=== PATIENT | female | born 1990 | race Two or more races ===

== ENCOUNTER 2019-06-25 10:34 | Inpatient (IN) | payer OTHER ==
[2019-06-25 13:58] VITALS: BMI 20.8
--- NOTE | 2019-06-25 14:52 | HP ---
CIWA Score Nausea/Vomitin-Mild Nausea/No Vomiting Muscle Tremors: 3 Anxiety: 3 Agitation: 3 Paroxysmal Sweats: 1-Minimal Palms Moist Orientation: 0-Oriented Tacttile Disturbances: 0-None Auditory Disturbances: 0-None Visual Disturbances: 0-None Headache: 1-Very Mild CIWA-Ar Total Score: 12 - Admission Criteria OASAS Guidelines: Admission for Medically Managed Detox: Requires at least one of the followin. CIWA greater than 12 2. Seizures within the past 24 hours 3. Delirium tremens within the past 24 hours 4. Hallucinations within the past 24 hours 5. Acute intervention needed for co occurring medical disorder 6. Acute intervention needed for co occurring psychiatric disorder 7. Severe withdrawal that cannot be handled at a lower level of care (continued vomiting, continued diarrhea, abnormal vital signs) requiring intravenous medication and/or fluids 8. Admission ROS [facility] Chief Complaint: alcohol detox Allergies/Adverse Reactions: Allergies Allergy/AdvReac Type Severity Reaction Status Date / Time No Known Allergies Allergy Verified 06/25/19 13:26 History of Present Illness: 28 yo with mental health issues- has trouble getting all her meds b/c of insurance, pt is homeless. Pt has been trying to stop using alcohol/cocaine for the last 4 years- but has not been able to stop. Pt states she has been getting MH medications when she is admitted at various facilities. Has not taken meds for several weeks- to see MH while here. Pt is using alcohol and crack to stop cutting- and does this when she is not able to express herself. Pt has no family that she can rely on. PCP- does not have one MH- has no services alcohol- 1/2 gallon of alcohol/day no h/o seizures or DT's crack cocaine- $500-600/day THC- $20/day DUR- no controlled substance Utox-THC, kendy - Ebola screening Have you traveled outside of the country in the last 21 days: No (N) Have you had contact with anyone from an Ebola affected area: No Do you have a fever: No - Review of Systems Constitutional: No Symptoms Reported EENT: reports: No Symptoms Reported Respiratory: reports: No Symptoms reported Cardiac: reports: No Symptoms Reported GI: reports: No Symptoms Reported : reports: No Symptoms Reported Musculoskeletal: reports: No Symptoms Reported Integumentary: reports: No Symptoms Reported Neuro: reports: No Symptoms reported Endocrine: reports: No Symptoms Reported Hematology: reports: No Symptoms Reported Psychiatric: reports: No Sypmtoms Reported Other Systems: Reviewed and Negative Patient History - Patient Medical History Hx Asthma: No Hx Chronic Obstructive Pulmonary Disease (COPD): No Hx Cardiac Disorders: No Hx Hypertension: No Hx Seizures: No Hx Diabetes: No Hx Gastrointestinal Disorders: No Hx Genitourinary Disorders: No Hx Sexually Transmitted Disorders: No Hx Renal Disease (ESRD): No Hx Depression: Yes Hx Suicide Attempt: No Hx Schizophrenia: No Other Medical History: cutting, - Patient Surgical History Past Surgical History: No Hx Neurologic Surgery: No Hx Cataract Extraction: No Hx Cardiac Surgery: No Hx Lung Surgery: No Hx Breast Surgery: No Hx Breast Biopsy: No Hx Abdominal Surgery: No Hx Appendectomy: No Hx Cholecystectomy: No Hx Genitourinary Surgery: No Hx Section: No Hx Orthopedic Surgery: No Anesthesia Reaction: No - Smoking Cessation Smoking history: Unknown if ever smoked Have you smoked in the past 12 months: Yes Aproximately how many cigarettes per day: 10 Hx Chewing Tobacco Use: No Initiated information on smoking cessation: Yes 'Breaking Loose' booklet given: 06/25/19 - Substances abused Alcohol Substance route: Oral Frequency: Daily Amount used: 1/2 gallon Age of first use: 16 Date of last use: 06/25/19 Marijuana/Hashish Substance route: Smoking Frequency: Daily Amount used: $20 Age of first use: 16 Date of last use: 06/24/19 Crack Substance route: Smoking Frequency: Daily Amount used: $300 Age of first use: 20 Date of last use: 06/23/19 Family Disease History - Family Disease History Family Disease History: Other: Father (addiction alcohol and PCP, THC) Admission Physical Exam BHS - Vital Signs Vital Signs: Vital Signs - 24 hr 06/25/19 13:17 Temperature 99 F Pulse Rate 85 Respiratory 18 Rate Blood Pressure 128/79 - Physical General Appearance: Yes: Within Normal Limits HEENTM: Yes: Within Normal Limits Respiratory: Yes: Within Normal Limits, Lungs Clear Neck: Yes: Within Normal Limits Cardiology: Yes: Within Normal Limits Abdominal: Yes: Within Normal Limits Back: Yes: Within Normal Limits Musculoskeletal: Yes: Within Normal Limits Extremities: Yes: Within Normal Limits Neurological: Yes: Within Normal Limits Integumentary: Yes: Other (cutting scars L forearm) - Diagnostic (1) Depression Current Visit: Yes Status: Acute (2) YVON (generalized anxiety disorder) Current Visit: Yes Status: Acute (3) Bipolar 1 disorder with moderate sally Current Visit: Yes Status: Acute (4) Alcohol use disorder Current Visit: Yes Status: Acute (5) Cannabis abuse Current Visit: Yes Status: Acute (6) Crack cocaine use Current Visit: Yes Status: Acute Breathalyzer - Breathalyzer Breathalyzer: 0.053 Urine Drug Screen - Test Device Lot number: [id number] Expiration date: 03/17/21 - Control Is test valid?: Yes - Results Drug screen NEGATIVE: No Urine drug screen results: THC-Marijuana, KENDY-Cocaine Inpatient Rehab Admission - Rehab Decision to Admit Inpatient rehab admission?: No
[2019-06-25] MEDS ORDERED: chlordiazePOXIDE HCL 25 MG CAPSULE PO ONE (14:59)
[2019-06-25] MEDS ORDERED: MAG HYDROX/AL HYDROX/SIMETH 30 ML UNIT-DOSE CUP PO PRN (14:59)
[2019-06-25] MEDS ORDERED: IBUPROFEN 400 MG TABLET (FP) PO PRN (14:59)
[2019-06-25] MEDS ORDERED: BISMUTH SUBSALICYLATE 524 MG/30 ML UD PO PRN (14:59)
[2019-06-25] MEDS ORDERED: chlordiazePOXIDE HCL 25 MG CAPSULE PO PRN (14:59)
[2019-06-25] MEDS ORDERED: ACETAMINOPHEN 325 MG TABLET (FP) PO PRN ×2 (14:59)
[2019-06-25] MEDS ORDERED: MAGNESIUM CITRATE 300 ML BOTTLE PO PRN (14:59)
[2019-06-25] MEDS ORDERED: MAGNESIUM HYDROX 2400MG/30ML ORAL SUSPENSION 30 ML CUP PO PRN (14:59)
[2019-06-25] MEDS: METHOCARBAMOL 500 MG TABLET PO PRN (17:17)
[2019-06-25] MEDS: chlordiazePOXIDE HCL 25 MG CAPSULE PO SCH (22:25)
[2019-06-25] MEDS: MELATONIN 5 MG TABLETS PO PRN (22:25)
[2019-06-25] MEDS: THIAMINE HCL 100 MG TABLET (FP) PO SCH (22:25)
[2019-06-26] MEDS: chlordiazePOXIDE HCL 25 MG CAPSULE PO SCH ×4 (06:03→23:48)
[2019-06-26] MEDS: NICOTINE POLACRILEX 2 MG GUM BUC PRN (06:05)
[2019-06-26] MEDS: PRENATAL VITAMINS W/ FOLIC ACID TABLET (FP) PO SCH (10:09)
[2019-06-26] MEDS: METHOCARBAMOL 500 MG TABLET PO PRN (10:09)
[2019-06-26] MEDS: NICOTINE 14 MG/24 HOURS TOPICAL PATCH TD SCH (10:09)
[2019-06-26] MEDS: MENTHOL/PHENOL 1 EACH UD MM PRN (10:10)
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
[2019-06-26] MEDS: LURASIDONE HCL 40 MG TABLET PO SCH (11:12)
[2019-06-26] MEDS: cloNIDine HCL 0.1 MG TABLET PO SCH (11:54)
--- NOTE | 2019-06-26 12:27 | PN ---
S CIWA - CIWA Score Nausea/Vomitin-No Nausea/No Vomiting Muscle Tremors: 4-Moderate,w/Arms Extend Anxiety: 4-Mod. Anxious/Guarded Agitation: 4-Moderately Restless Paroxysmal Sweats: 3 Orientation: 0-Oriented Tacttile Disturbances: 0-None Auditory Disturbances: 0-None Visual Disturbances: 0-None Headache: 0-None Present CIWA-Ar Total Score: 15 BHS Progress Note (SOAP) Subjective: shakes sweats interrupted sleep body aches anxiety Objective: 06/26/19 12:25 Vital Signs Temperature 97.3 F L 06/26/19 09:44 Pulse Rate 82 06/26/19 09:44 Respiratory Rate 17 06/26/19 09:44 Blood Pressure 127/65 06/26/19 09:44 O2 Sat by Pulse Oximetry (%) Laboratory Tests 06/25/19 14:16 POC Urine HCG, Qual Negative rest of labs pending aaox3 ambulating no acute distress Assessment: 06/26/19 12:26 withdrawal sx Plan: continue detox increase fluids pending labs
[2019-06-26 12:48] LABS: HEMATOCRIT 38.4 % (32.4-45.2); HEMOGLOBIN 12.9 GM/dL (10.7-15.3); MCH 32.2 pg (25.7-33.7); MCHC 33.6 g/dl (32.0-36.0); MEAN CELL VOLUME 95.9 fl (80-96); MEAN PLT VOLUME 8.3 fl (7.5-11.1); PLATELET COUNT 270 K/MM3 (134-434); RBC 4.01 M/mm3 (3.60-5.2); RDW 13.9 % (11.6-15.6); WHITE BLOOD COUNT 7.9 K/mm3 (4.0-10.0)
[2019-06-26 12:54] LABS: ALBUMIN 3.9 g/dl (3.4-5.0); BILIRUBIN,TOTAL 0.3 mg/dL (0.2-1); BLOOD UREA NITROGEN 14.5 mg/dL (7-18); CALCIUM 9.1 mg/dL (8.5-10.1); CREATININE 0.9 mg/dL (0.55-1.3); POTASSIUM 3.9 mmol/L (3.5-5.1); TOT PROT 7.3 g/dl (6.4-8.2)
[2019-06-26 12:57] LABS: URINE APPEARANCE CLOUDY; URINE BILIRUBIN NEGATIVE (NEGATIVE); URINE COLOR YELLOW; URINE GLUCOSE (UA) NEGATIVE (NEGATIVE); URINE KETONE NEGATIVE (NEGATIVE); URINE LEUK ESTERASE NEGATIVE (NEGATIVE); URINE NITRITE NEGATIVE (NEGATIVE); URINE PROTEIN NEGATIVE (NEGATIVE); URINE UROBILINOGEN 0.2 mg/dL (0.2-1.0)
[2019-06-26] MEDS: THIAMINE HCL 100 MG TABLET (FP) PO SCH (23:48)
[2019-06-26] MEDS: QUEtiapine FUMARATE 100 MG TABLET (FP) PO SCH (23:48)
[2019-06-27] MEDS: METHOCARBAMOL 500 MG TABLET PO PRN ×4 (01:07→22:16)
[2019-06-27] MEDS: chlordiazePOXIDE HCL 25 MG CAPSULE PO SCH ×4 (06:13→22:15)
[2019-06-27] MEDS: cloNIDine HCL 0.1 MG TABLET PO SCH (10:26)
[2019-06-27] MEDS: LURASIDONE HCL 40 MG TABLET PO SCH (10:26)
[2019-06-27] MEDS: PRENATAL VITAMINS W/ FOLIC ACID TABLET (FP) PO SCH (10:27)
[2019-06-27] MEDS: NICOTINE 14 MG/24 HOURS TOPICAL PATCH TD SCH (10:27)
[2019-06-27] MEDS: NICOTINE POLACRILEX 2 MG GUM BUC PRN ×2 (10:28→12:42)
[2019-06-27] MEDS: MENTHOL/PHENOL 1 EACH UD MM PRN ×2 (10:28→22:18)
--- NOTE | 2019-06-27 11:28 | PN ---
[facility] CIWA - CIWA Score Nausea/Vomitin-No Nausea/No Vomiting Muscle Tremors: 3 Anxiety: 3 Agitation: 3 Paroxysmal Sweats: 2 Orientation: 0-Oriented Tacttile Disturbances: 0-None Auditory Disturbances: 0-None Visual Disturbances: 0-None Headache: 0-None Present CIWA-Ar Total Score: 11 S Progress Note (SOAP) Subjective: agitation sweats jumpy irritable Objective: 06/27/19 11:27 Vital Signs Temperature 98.2 F 06/27/19 09:50 Pulse Rate 93 H 06/27/19 09:50 Respiratory Rate 16 06/27/19 09:50 Blood Pressure 111/69 06/27/19 09:50 O2 Sat by Pulse Oximetry (%) Laboratory Tests 06/25/19 06/26/19 06/26/19 14:16 09:00 09:00 WBC 7.9 RBC 4.01 Hgb 12.9 Hct 38.4 MCV 95.9 MCH 32.2 MCHC 33.6 RDW 13.9 Plt Count 270 MPV 8.3 Sodium 140 Potassium 3.9 Chloride 104 Carbon Dioxide 26 Anion Gap 10 BUN 14.5 Creatinine 0.9 Est GFR (CKD-EPI)AfAm 102.28 Est GFR (CKD-EPI)NonAf 88.25 Random Glucose 90 Calcium 9.1 Total Bilirubin 0.3 AST 16 ALT 18 Alkaline Phosphatase 67 Total Protein 7.3 Albumin 3.9 Urine Color Urine Appearance Urine pH Ur Specific [place] Urine Protein Urine Glucose (UA) Urine Ketones Urine Blood Urine Nitrite Urine Bilirubin Urine Urobilinogen Ur Leukocyte Esterase POC Urine HCG, Qual Negative RPR Titer 06/26/19 06/26/19 09:00 09:00 WBC RBC Hgb Hct MCV MCH MCHC RDW Plt Count MPV Sodium Potassium Chloride Carbon Dioxide Anion Gap BUN Creatinine Est GFR (CKD-EPI)AfAm Est GFR (CKD-EPI)NonAf Random Glucose Calcium Total Bilirubin AST ALT Alkaline Phosphatase Total Protein Albumin Urine Color Yellow Urine Appearance Cloudy Urine pH 6.0 Ur Specific [place] 1.030 Urine Protein Negative Urine Glucose (UA) Negative Urine Ketones Negative Urine Blood Negative Urine Nitrite Negative Urine Bilirubin Negative Urine Urobilinogen 0.2 Ur Leukocyte Esterase Negative POC Urine HCG, Qual RPR Titer Nonreactive labs noted aaox3 ambulating no acute distress Assessment: 06/27/19 11:28 withdrawal sx Plan: continue detox increase fluids
[2019-06-27] MEDS: hydrOXYzine PAMOATE 25 MG CAPSULE (FP) PO PRN (12:42)
[2019-06-27] MEDS: QUEtiapine FUMARATE 100 MG TABLET (FP) PO SCH (22:15)
[2019-06-27] MEDS: THIAMINE HCL 100 MG TABLET (FP) PO SCH (22:15)
[2019-06-28] MEDS ORDERED: chlordiazePOXIDE HCL 10 MG CAPSULE PO PRN
[2019-06-28] MEDS: chlordiazePOXIDE HCL 10 MG CAPSULE PO SCH ×4 (06:08→22:09)
[2019-06-28] MEDS: METHOCARBAMOL 500 MG TABLET PO PRN ×3 (09:01→23:45)
[2019-06-28] MEDS: NICOTINE POLACRILEX 2 MG GUM BUC PRN ×3 (09:01→19:05)
[2019-06-28] MEDS: PRENATAL VITAMINS W/ FOLIC ACID TABLET (FP) PO SCH (10:26)
[2019-06-28] MEDS: cloNIDine HCL 0.1 MG TABLET PO SCH (10:27)
[2019-06-28] MEDS: LURASIDONE HCL 40 MG TABLET PO SCH (10:27)
[2019-06-28] MEDS: NICOTINE 14 MG/24 HOURS TOPICAL PATCH TD SCH (10:27)
--- NOTE | 2019-06-28 11:18 | PN ---
[facility] CIWA - CIWA Score Nausea/Vomitin-Mild Nausea/No Vomiting Muscle Tremors: 1-None Visible, but Todd Anxiety: 3 Agitation: 3 Paroxysmal Sweats: No Perspiration Orientation: 0-Oriented Tacttile Disturbances: 1-Very Mild Itch/Numbness Auditory Disturbances: 0-None Visual Disturbances: 0-None Headache: 1-Very Mild CIWA-Ar Total Score: 10 BHS Progress Note (SOAP) Subjective: alert,irritable,anxious,interrupted sleep, Objective: 06/28/19 11:16 Vital Signs Temperature 97.4 F L 06/28/19 09:23 Pulse Rate 89 06/28/19 09:23 Respiratory Rate 18 06/28/19 09:23 Blood Pressure 124/71 06/28/19 09:23 O2 Sat by Pulse Oximetry (%) Assessment: 06/28/19 11:16 withdrawal symptom Plan: continue detox librium regimen,would lik ehiv test done,psychiatric evaluation by patient's request
[2019-06-28] MEDS: MENTHOL/PHENOL 1 EACH UD MM PRN ×2 (17:04→22:12)
[2019-06-28] MEDS: QUEtiapine FUMARATE 100 MG TABLET (FP) PO SCH (22:09)
[2019-06-28] MEDS: THIAMINE HCL 100 MG TABLET (FP) PO SCH (22:09)
[2019-06-28] MEDS: hydrOXYzine PAMOATE 25 MG CAPSULE (FP) PO PRN (22:10)
[2019-06-29] MEDS: METHOCARBAMOL 500 MG TABLET PO PRN ×2 (05:45→17:11)
[2019-06-29] MEDS: chlordiazePOXIDE HCL 10 MG CAPSULE PO SCH ×2 (05:45→17:10)
[2019-06-29] MEDS: MENTHOL/PHENOL 1 EACH UD MM PRN ×2 (05:45→17:13)
[2019-06-29] MEDS: NICOTINE POLACRILEX 2 MG GUM BUC PRN ×2 (05:46→20:06)
[2019-06-29] MEDS: cloNIDine HCL 0.1 MG TABLET PO SCH (09:58)
[2019-06-29] MEDS: PRENATAL VITAMINS W/ FOLIC ACID TABLET (FP) PO SCH (09:58)
[2019-06-29] MEDS: hydrOXYzine PAMOATE 25 MG CAPSULE (FP) PO PRN (10:01)
[2019-06-29] MEDS: NICOTINE 14 MG/24 HOURS TOPICAL PATCH TD SCH (10:01)
[2019-06-29] MEDS: LURASIDONE HCL 40 MG TABLET PO SCH (10:02)
--- NOTE | 2019-06-29 10:25 | PN ---
[facility] CIWA - CIWA Score Nausea/Vomitin-No Nausea/No Vomiting Muscle Tremors: 2 Anxiety: 2 Agitation: 2 Paroxysmal Sweats: No Perspiration Orientation: 0-Oriented Tacttile Disturbances: 0-None Auditory Disturbances: 0-None Visual Disturbances: 0-None Headache: 0-None Present CIWA-Ar Total Score: 6 S Progress Note (SOAP) Subjective: doing well with librium detox regimen sleep better at night well rested less tremor discuss aftercare with staff prefers [facility] for alcohol recovery Objective: 06/29/19 10:28 Vital Signs Temperature 98.9 F 06/29/19 09:13 Pulse Rate 100 H 06/29/19 09:13 Respiratory Rate 20 06/29/19 09:13 Blood Pressure 100/70 06/29/19 09:13 O2 Sat by Pulse Oximetry (%) Laboratory Last Values WBC 7.9 K/mm3 (4.0-10.0) 06/26/19 09:00 RBC 4.01 M/mm3 (3.60-5.2) 06/26/19 09:00 Hgb 12.9 GM/dL (10.7-15.3) 06/26/19 09:00 Hct 38.4 % (32.4-45.2) 06/26/19 09:00 MCV 95.9 fl (80-96) 06/26/19 09:00 MCH 32.2 pg (25.7-33.7) 06/26/19 09:00 MCHC 33.6 g/dl (32.0-36.0) 06/26/19 09:00 RDW 13.9 % (11.6-15.6) 06/26/19 09:00 Plt Count 270 K/MM3 (134-434) 06/26/19 09:00 MPV 8.3 fl (7.5-11.1) 06/26/19 09:00 Sodium 140 mmol/L (136-145) 06/26/19 09:00 Potassium 3.9 mmol/L (3.5-5.1) 06/26/19 09:00 Chloride 104 mmol/L (98-107) 06/26/19 09:00 Carbon Dioxide 26 mmol/L (21-32) 06/26/19 09:00 Anion Gap 10 MMOL/L (8-16) 06/26/19 09:00 BUN 14.5 mg/dL (7-18) 06/26/19 09:00 Creatinine 0.9 mg/dL (0.55-1.3) 06/26/19 09:00 Est GFR (CKD-EPI)AfAm 102.28 06/26/19 09:00 Est GFR (CKD-EPI)NonAf 88.25 06/26/19 09:00 Random Glucose 90 mg/dL (74-106) 06/26/19 09:00 Calcium 9.1 mg/dL (8.5-10.1) 06/26/19 09:00 Total Bilirubin 0.3 mg/dL (0.2-1) 06/26/19 09:00 AST 16 U/L (15-37) 06/26/19 09:00 ALT 18 U/L (13-61) 06/26/19 09:00 Alkaline Phosphatase 67 U/L (45-117) 06/26/19 09:00 Total Protein 7.3 g/dl (6.4-8.2) 06/26/19 09:00 Albumin 3.9 g/dl (3.4-5.0) 06/26/19 09:00 Urine Color Yellow 06/26/19 09:00 Urine Appearance Cloudy 06/26/19 09:00 Urine pH 6.0 (5.0-8.0) 06/26/19 09:00 Ur Specific [place] 1.030 (1.010-1.035) 06/26/19 09:00 Urine Protein Negative (NEGATIVE) 06/26/19 09:00 Urine Glucose (UA) Negative (NEGATIVE) 06/26/19 09:00 Urine Ketones Negative (NEGATIVE) 06/26/19 09:00 Urine Blood Negative (NEGATIVE) 06/26/19 09:00 Urine Nitrite Negative (NEGATIVE) 06/26/19 09:00 Urine Bilirubin Negative (NEGATIVE) 06/26/19 09:00 Urine Urobilinogen 0.2 mg/dL (0.2-1.0) 06/26/19 09:00 Ur Leukocyte Esterase Negative (NEGATIVE) 06/26/19 09:00 POC Urine HCG, Qual Negative 06/25/19 14:16 RPR Titer Nonreactive (NONREACTIVE) 06/26/19 09:00 HIV 1&2 Ag/Ab, 4th Gen Non reactive (Non Reactive) 06/28/19 11:00 lab noted 06/29/19 10:28 anxious about leaving detox lack of confidence in relapse preventin Assessment: 06/29/19 10:29 alcohohol withdrawal sx Plan: continue librium detox regimen
--- NOTE | 2019-06-29 11:59 | PN ---
Psychiatric Progress Note Vital Signs: Vital Signs Period Temp Pulse Resp BP Sys/Drake Pulse Ox Last 24 Hr 96.9 F-99.3 F 73-100 16-20 99-110/49-75 Date of Session: 06/29/19 Chief Complaint:: " I have alot of anxiety." HPI: Patient admitted to for treatment of alcohol, cocaine and cannabis dependence. Patient reports worsening anxiety. ROS: Patient coherent, fatigue, alert + oriented x3. Current Medications: Active Medications Generic Name Dose Route Start Last Admin Trade Name Freq PRN Reason Stop Dose Admin Acetaminophen 650 mg 06/25/19 14:59 06/28/19 22:11 Tylenol - PO 650 mg Q6H PRN Administration PAIN LEVEL 4 - 6 Acetaminophen 650 mg 06/25/19 14:59 Tylenol - PO Q6H PRN FEVER Al Hydroxide/Mg Hydroxide 30 ml 06/25/19 14:59 Mylanta Oral Suspension - PO Q6H PRN DYSPEPSIA Bismuth Subsalicylate 524 mg 06/25/19 14:59 Pepto-Bismol - PO Q1H PRN DIARRHEA Bupropion HCl 150 mg 06/26/19 10:45 06/29/19 09:58 Wellbutrin Xl - PO 150 mg DAILY SHERON Administration Chlordiazepoxide HCl 10 mg 06/29/19 05:00 06/29/19 05:45 Librium - PO 06/29/19 17:01 10 mg Q12H SHERON Administration Chlordiazepoxide HCl 10 mg 06/30/19 05:00 Librium - PO 06/30/19 05:01 ONCE@0500 ONE Clonidine 0.2 mg 06/26/19 11:40 06/29/19 09:58 Catapres - PO 0.2 mg DAILY SHERON Administration Eucalyptus/Menthol/Phenol/Sorbitol 1 each 06/25/19 14:59 06/29/19 05:45 Cepastat Lozenge - MM 07/01/19 14:59 1 each Q4H PRN Administration SORE THROAT Hydroxyzine Pamoate 25 mg 06/25/19 14:59 06/29/19 10:01 Vistaril - PO 07/01/19 14:59 25 mg Q6H PRN Administration For Anxiety Ibuprofen 400 mg 06/25/19 14:59 06/27/19 19:18 Motrin - PO 400 mg Q6H PRN Administration PAIN LEVEL 1 - 3 Lurasidone HCl 40 mg 06/26/19 10:45 06/29/19 10:02 Latuda - PO 40 mg DAILY SHERON Administration Magnesium Citrate 300 ml 06/25/19 14:59 Citroma - PO Q48H PRN CONSTIPATION Magnesium Hydroxide 30 ml 06/25/19 14:59 Milk Of Magnesia - PO PRN PRN CONSTIPATION Melatonin 5 mg 06/25/19 14:59 06/25/19 22:25 Melatonin PO 5 mg HS PRN Administration INSOMNIA Methocarbamol 500 mg 06/25/19 14:59 06/29/19 05:45 Robaxin - PO 07/01/19 14:59 500 mg Q6H PRN Administration MUSCLE SPASMS Nicotine 14 mg 06/26/19 10:00 06/29/19 10:01 Nicoderm Patch - TD 14 mg DAILY SHERON Administration Nicotine Polacrilex 2 mg 06/25/19 18:05 06/29/19 05:46 Nicorette Gum - BUC 2 mg Q2H PRN Administration NICOTINE REPLACEMENT RX Multivit/Folic Acid/Iron 1 tab 06/26/19 10:00 06/29/19 09:58 Vitamins (Sjr) - PO 1 tab DAILY SHERON Administration Quetiapine Fumarate 100 mg 06/26/19 22:00 06/28/19 22:09 Seroquel - PO 100 mg HS SHERON Administration Thiamine HCl 100 mg 06/25/19 22:00 06/28/19 22:09 Vitamin B1 - PO 100 mg HS SHERON Administration Medication(s) Change(s): Yes. Current Side Effect: No Lab tests ordered: No Lab tests reviewed: Yes Provider note:: Patient seen by Dr. Main for initial psychiatric consultation on 06/26/19. Dr. Main's note read and appreciated. Medications reviewed. Will d/c vistaril 25 q6h and order vistaril 50mg q4h. Patient also educated on the importance of utilziing her coping skills to help manage her anxiety. Patient satisifed and receptive to feedback. Total face to face time:: 20 Mental Status Exam - Mental Status Exam Alert and Oriented to: Time, Place, Person Cognitive Function: Good Patient Appearance: Well Groomed Mood: Euthymic Affect: Mood Congruent Patient Behavior: Fatigued Speech Pattern: Appropriate Voice Loudness: Normal Thought Process: Goal Oriented Thought Disorder: Not Present Hallucinations: Denies Suicidal Ideation: Denies Homicidal Ideation: Denies Insight/Judgement: Poor Sleep: Fair Appetite: Fair Muscle strength/Tone: Normal Gait/Station: Normal Psychiatric Treatment Plan - Problem List (1) Substance induced mood disorder Current Visit: Yes (2) Substance-induced sleep disorder Current Visit: Yes (3) Uncomplicated alcohol dependence Current Visit: Yes (4) Borderline personality disorder Current Visit: Yes (5) Nicotine dependence Current Visit: Yes (6) PTSD (post-traumatic stress disorder) Current Visit: Yes (7) Substance-induced sleep disorder Current Visit: Yes (8) YVON (generalized anxiety disorder) Current Visit: Yes (9) Cannabis dependence Current Visit: Yes (10) Cocaine dependence Current Visit: Yes
[2019-06-29] MEDS ORDERED: hydrOXYzine PAMOATE 50 MG CAPSULE (FP) PO PRN (12:43)
[2019-06-29] MEDS: THIAMINE HCL 100 MG TABLET (FP) PO SCH (22:01)
[2019-06-29] MEDS: QUEtiapine FUMARATE 100 MG TABLET (FP) PO SCH (22:01)
[2019-06-29] MEDS: MELATONIN 5 MG TABLETS PO PRN (22:01)
[2019-06-30] MEDS ORDERED: chlordiazePOXIDE HCL 10 MG CAPSULE PO ONE (05:00)
[2019-06-30] MEDS: METHOCARBAMOL 500 MG TABLET PO PRN (05:28)
[2019-06-30] MEDS: MENTHOL/PHENOL 1 EACH UD MM PRN ×2 (05:28→10:20)
[2019-06-30] MEDS: NICOTINE POLACRILEX 2 MG GUM BUC PRN ×2 (05:28→10:19)
[2019-06-30 09:14] VITALS: BP 115/74; PULSE 109; TEMP 97.9
[2019-06-30] MEDS: PRENATAL VITAMINS W/ FOLIC ACID TABLET (FP) PO SCH (10:15)
[2019-06-30] MEDS: cloNIDine HCL 0.1 MG TABLET PO SCH (10:15)
[2019-06-30] MEDS: LURASIDONE HCL 40 MG TABLET PO SCH (10:15)
[2019-06-30] MEDS: NICOTINE 14 MG/24 HOURS TOPICAL PATCH TD SCH (10:18)
--- NOTE | 2019-06-30 18:42 | DS ---
[facility] Detox Discharge Summary Admission Date: 06/25/19 Discharge Date: 06/30/19 - History Present History: Alcohol Dependence, Cannabis Dependence, Cocaine Dependence Additional Comments: PATIENT GOING TO [facility] ([place], [place]) FOR AFTERCARE. PATIENT WAS DISCHARGED FROM DETOX UNIT IN STABLE MEDICAL CONDITION. Pertinent Past History: Depression, Bipolar Disorder, Generalized Anxiety Disorder, Borderline Personality Disorder, Post-Traumatic Stress Disorder, Nicotine Dependence. - Physical Exam Results Vital Signs: Vital Signs Temperature 97.9 F 06/30/19 09:13 Pulse Rate 109 H 06/30/19 09:13 Respiratory Rate 20 06/30/19 09:13 Blood Pressure 115/74 06/30/19 09:13 O2 Sat by Pulse Oximetry (%) Pertinent Admission Physical Exam Findings: WITHDRAWAL SYMPTOMS. Laboratory Tests 06/25/19 06/26/19 06/26/19 14:16 09:00 09:00 WBC 7.9 RBC 4.01 Hgb 12.9 Hct 38.4 MCV 95.9 MCH 32.2 MCHC 33.6 RDW 13.9 Plt Count 270 MPV 8.3 Sodium 140 Potassium 3.9 Chloride 104 Carbon Dioxide 26 Anion Gap 10 BUN 14.5 Creatinine 0.9 Est GFR (CKD-EPI)AfAm 102.28 Est GFR (CKD-EPI)NonAf 88.25 Random Glucose 90 Calcium 9.1 Total Bilirubin 0.3 AST 16 ALT 18 Alkaline Phosphatase 67 Total Protein 7.3 Albumin 3.9 Urine Color Urine Appearance Urine pH Ur Specific [place] Urine Protein Urine Glucose (UA) Urine Ketones Urine Blood Urine Nitrite Urine Bilirubin Urine Urobilinogen Ur Leukocyte Esterase POC Urine HCG, Qual Negative RPR Titer HIV 1&2 Ag/Ab, 4th Gen 06/26/19 06/26/19 06/28/19 09:00 09:00 11:00 WBC RBC Hgb Hct MCV MCH MCHC RDW Plt Count MPV Sodium Potassium Chloride Carbon Dioxide Anion Gap BUN Creatinine Est GFR (CKD-EPI)AfAm Est GFR (CKD-EPI)NonAf Random Glucose Calcium Total Bilirubin AST ALT Alkaline Phosphatase Total Protein Albumin Urine Color Yellow Urine Appearance Cloudy Urine pH 6.0 Ur Specific [place] 1.030 Urine Protein Negative Urine Glucose (UA) Negative Urine Ketones Negative Urine Blood Negative Urine Nitrite Negative Urine Bilirubin Negative Urine Urobilinogen 0.2 Ur Leukocyte Esterase Negative POC Urine HCG, Qual RPR Titer Nonreactive HIV 1&2 Ag/Ab, 4th Gen Non reactive LABS NOTED. - Treatment Hospital Course: Detox Protocol Followed, Detoxed Safely, Responded well, Discharged Condition Good, Rehab Referral Accepted Patient has Accepted a Rehab Referral to: [facility] ([place], [place]). - Medication Discharge Medications: Ambulatory Orders Bupropion HCl [Wellbutrin Sr] 150 mg PO DAILY 06/25/19 Divalproex *ER* [Depakote *ER* -] 1,000 mg PO BID 06/25/19 - Diagnosis (1) Alcohol use disorder Status: Acute (2) Bipolar 1 disorder with moderate sally Status: Acute (3) Cannabis dependence Status: Acute (4) Crack cocaine use Status: Acute (5) Depression Status: Acute Qualifiers: Depression Type: unspecified Qualified Code(s): F32.9 - Major depressive disorder, single episode, unspecified (6) Substance induced mood disorder Status: Acute (7) Substance-induced sleep disorder Status: Acute (8) Uncomplicated alcohol dependence Status: Acute (9) Borderline personality disorder Status: Chronic (10) Nicotine dependence Status: Chronic Qualifiers: Nicotine product type: cigarettes Substance use status: uncomplicated Qualified Code(s): F17.210 - Nicotine dependence, cigarettes, uncomplicated (11) PTSD (post-traumatic stress disorder) Status: Chronic (12) Bipolar disorder Status: Ruled-out Qualifiers: Active/Remission status: remission status unspecified Qualified Code(s): F31.9 - Bipolar disorder, unspecified (13) YVON (generalized anxiety disorder) Status: Ruled-out - AMA Did Patient Leave Against Medical Advice: No [facility] CIWA - CIWA Score Nausea/Vomitin-No Nausea/No Vomiting Muscle Tremors: None Anxiety: 1-Mildly Anxious Agitation: 2 Paroxysmal Sweats: No Perspiration Orientation: 0-Oriented Tacttile Disturbances: 0-None Auditory Disturbances: 0-None Visual Disturbances: 0-None Headache: 0-None Present CIWA-Ar Total Score: 3
== END 2019-06-30 12:50 | disposition other institution (70) | DRG 774 ==
LOC: YASAS 10:34 → Y6N 15:49 → Y3N 06-27 18:41
PROVIDERS: ADMIT Surgery; ATTEND Surgery
PROC: HZ2ZZZZ Detoxification Services for Substance Abuse Treatment (ICD-10-PCS; principal; 2019-06-25)
DX: F10.230 Alcohol dependence with withdrawal, uncomplicated (principal); F14.20 Cocaine dependence, uncomplicated; F12.20 Cannabis dependence, uncomplicated; F17.210 Nicotine dependence, cigarettes, uncomplicated; F31.9 Bipolar disorder, unspecified; F19.24 Other psychoactive substance dependence with psychoactive substance-induced mood disorder; F19.282 Other psychoactive substance dependence with psychoactive substance-induced sleep disorder; F41.1 Generalized anxiety disorder; F43.10 Post-traumatic stress disorder, unspecified; F60.3 Borderline personality disorder
CPT/HCPCS: 36415; 80053; 81003; 81025; 85027; 86593; 87389; J0735